=== PATIENT | male | born 1970 | race Caucasian/White ===

== ENCOUNTER 2019-11-23 16:48 | Outpatient (CLI) | payer BC, SELFPAY ==
[2019-11-23 17:51] LABS: Uric Acid 10.5 mg/dL (3.5-8.5)
[2019-11-23 17:53] LABS: Rheumatoid Factor < 8.6 IU/ML (<12)
== END 2019-11-23 16:49 | disposition home or self-care (01) ==
PROVIDERS: PCP Family Medicine; Visit Provider Family Medicine
DX: M25.50 Pain in unspecified joint (principal)
CPT/HCPCS: 36415; 84550; 86430

== ENCOUNTER → 2020-01-10 16:53 | Outpatient (CLI) | payer BC, SELFPAY ==
--- NOTE | ~2020-01-10 | XR_ITS ---
EXAMINATION: XR finger 3rd LT min 2V INDICATION: Left third finger pain TECHNIQUE: Four views of the left third finger are obtained. COMPARISON: None available FINDINGS: There is soft tissue swelling of the finger centered at the proximal interphalangeal joint. There are tiny heterotopic ossification seen at the dorsal and medial aspect of the interphalangeal joint space. Bone alignment is normal. IMPRESSION: 1. Heterotopic ossification and soft tissue swelling at the proximal interphalangeal joint which coul d reflect avulsion injury. Reviewed, dictated and finalized at location A. IMPRESSION: 1. Heterotopic ossification and soft tissue swelling at the proximal interphala ngeal joint which could reflect avulsion injury.
== END ==
PROVIDERS: PCP Family Medicine; Visit Provider Family Medicine
DX: M79.645 Pain in left finger(s) (principal); M79.89 Other specified soft tissue disorders
CPT/HCPCS: 73140

== ENCOUNTER 2022-07-25 12:59 | Outpatient (CLI) | payer OTHER, SELFPAY | END 2022-07-25 13:00 | disposition home or self-care (01) | PROVIDERS: PCP Family Medicine; Visit Provider Family Medicine | DX: H91.90 Unspecified hearing loss, unspecified ear (principal) | CPT/HCPCS: 92557; 92567 ==

== ENCOUNTER → 2024-04-04 08:58 | Outpatient (REF) | payer OTHER, SELFPAY | LOC: ANHLAB 08:58 | PROVIDERS: PCP Family Medicine; Visit Provider Plastic Surgery | DX: R22.0 Localized swelling, mass and lump, head (principal) | CPT/HCPCS: 88305 ==

== ENCOUNTER 2024-11-01 14:31 | Outpatient (CLI) | payer OTHER, SELFPAY ==
--- NOTE | ~2024-11-01 | US_ITS ---
Left posterior shoulder ULTRASOUND (Doppler ultrasound interrogation techniques used as needed for th is exam.) Ordering provider: Kenn Turcios MD History: . R22.2 - Localized swelling, mass and lump, trunk . Comparison: None. FINDINGS/impression: Large isoechoic area which measures 8.5 x 3.1 x 8.7 cm. This may represent a lipoma. A mass lesion is less likely. Further evaluation and follow-up advised. Reviewed, dictated and finalized at location A.
== END 2024-11-01 14:32 | disposition home or self-care (01) ==
PROVIDERS: PCP Family Medicine; Visit Provider Surgery
DX: R22.2 Localized swelling, mass and lump, trunk (principal)
CPT/HCPCS: 76604

== ENCOUNTER 2024-11-11 09:53 | Outpatient (CLI) | payer OTHER, SELFPAY ==
--- NOTE | ~2024-11-11 | CT_ITS ---
Procedure: CT shoulder LT wo con Ordering provider: Kenn Turcios MD History: . R22.2 - Localized swelling, mass and lump, trunk . Comparison: None. Technique: Thin slice axial CT of the No IV contrast was given. Sagittal and coronal reformatted imag es were also obtained and reviewed. Radiation reduction technique utilized.The dose-length product wa s 715.1 mGy-cm. Findings: BONES: No definite evidence of fracture or dislocation. Small bony fragment seen near to the acromioc lavicular joint most likely due to old trauma. Evaluation for tenderness advised. JOINT SPACES: Mild osteoarthritic changes of the acromioclavicular joint. Moderate to severe osteoart hritic changes of the glenohumeral joint with osteophytes seen inferiorly in the humeral head and in the glenoid cavity.. SOFT TISSUES: No definite abnormality seen. IMPRESSION: Small bony fragment seen near to the acromioclavicular joint which may be due to acute or old fractur e. Clinical correlation advised. Mild osteoarthritic changes of the acromioclavicular joint. Moderate to severe osteoarthritic changes of the glenohumeral joint. No definite soft tissue mass is seen. Reviewed, dictated and finalized at location A. IMPRESSION: Small bony fragment seen near to the acromioclavicular joint which may be due t o acute or old fracture. Clinical correlation advised. Mild osteoarthritic changes of the acromioclavicular joint. Moderate to severe osteoarthritic changes of the glenohumeral joint. No definite soft tissue mass is seen.
== END 2024-11-11 09:54 | disposition home or self-care (01) ==
LOC: MICIMG 09:53
PROVIDERS: PCP Family Medicine; Visit Provider Surgery
DX: R22.2 Localized swelling, mass and lump, trunk (principal); M19.012 Primary osteoarthritis, left shoulder
CPT/HCPCS: 73200

== ENCOUNTER 2024-12-10 07:29 | Outpatient (CLI) | payer OTHER, SELFPAY ==
[2024-12-10 08:44] LABS: Basophils Absolute Auto 0.1 K/mm3 (0.0-0.1); Basophils Percent Auto 0.9 % (0.2-1.2); Eosinophils Absolute Auto 0.3 K/mm3 (0-0.3); Hematocrit 45.1 % (42.0-52.0); Hemoglobin 15.5 g/dL (14.0-18.0); Immature Granulocyte Absolute 0.02 K/mm3 (0.00-0.031); Immature Granulocyte Percent A 0.3 % (0-0.5); Lymphocytes Absolute Auto 1.98 K/mm3 (0.9-3.2); Lymphocytes Percent Auto 25.7 % (18.3-44.2); Mean Corpuscular HGB Conc 34.4 g/dl (32-36); Mean Corpuscular Hemoglobin 31.2 pg (26-34); Mean Corpuscular Volume 90.7 fl (80-100); Mean Platelet Volume 11.7 fl (7.4-10.4); Monocytes Absolute Auto 0.7 K/mm3 (0.1-0.6); Monocytes Percent Auto 8.6 % (2.6-8.5); Neutrophils Absolute Auto 4.7 K/mm3 (1.3-6.7); Neutrophils Percent Auto 60.5 % (45.5-73.1); Platelet Count Result 193 k/mm3 (150-375); Red Blood Count 4.97 M/mm3 (4.6-6.20); Red Cell Distribution Width 12.6 % (11.5-14.5); White Blood Count 7.7 K/mm3 (4.5-10.0)
[2024-12-10 08:58] LABS: Anion Gap 11 mmol/L (4-12); Blood Urea Nitrogen 15 mg/dL (9-20); Calcium 9.5 mg/dL (8.4-10.2); Carbon Dioxide 26 mmol/L (22-30); Chloride 104 mmol/L (98-107); Estimated Glomerular Filt Rate > 60; Glucose 93 mg/dL (65-110); Potassium 3.7 mmol/L (3.4-5.0); Sodium 141 mmol/L (137-145)
== END 2024-12-10 07:30 | disposition home or self-care (01) ==
LOC: ANHLAB 07:31
PROVIDERS: Anesthesiology; PCP Family Medicine; Visit Provider Surgery
DX: Z51.81 Encounter for therapeutic drug level monitoring (principal); R22.2 Localized swelling, mass and lump, trunk; L98.9 Disorder of the skin and subcutaneous tissue, unspecified
CPT/HCPCS: 36415; 80048; 85025

== ENCOUNTER 2024-12-14 00:42 | Day surgery (SDC) | payer OTHER, SELFPAY ==
[2024-12-09 13:23] VITALS: BMI 36.6
--- NOTE | 2024-12-09 13:46 | PC.NURSE ---
Report to the Outpatient Waiting Room, entrance under the green pavilion located off [facility], at time ___10:00AM___ on date ____12/14/24___. Planned Procedure Time: __12:00PM .? Time changes happen often and if your time is changed the preop area will call you the afternoon before. - You and your visitor will be asked to self-screen and do not enter if you have any COVID symptoms. Please call surgeon if you need to reschedule. - A mask is optional within the hospital at this time. Patients may have clear liquids (water, carbonated beverages, clear teas, apple juice) until 3 hours prior to surgery (9:00AM) with a maximum of 20 ounces. - No food from midnight until time of surgery and no smoking, or chewing tobacco (or any form of nicotine). No chewing gum, candy or mints. Take only the following medications with a SIP of water on the morning of surgery: __NONE DO NOT STOP ANY OF YOUR OTHER PRESCRIPTION MEDICATIONS PRIOR TO SURGERY EXCEPT THE FOLLOWING Hold all vitamins and supplements for 3 days per anesthesiologist. Medications to discontinue per physician NONE Date to take last dose Please no make-up, nail luxembourgish, hairspray, perfume, deodorant, or body powder the day of surgery.? No jewelry (including any body piercings) or valuables the day of surgery, leave them at home.? Please take a shower or bath the night before, or the morning of, surgery with an antibacterial soap.? Wear comfortable, loose fitting clothing.? - Jewelry must be removed prior to entering the operating room.? Rings and piercings that are not removed may be cut off. - The hospital will not accept responsibility for valuables.? - Please leave all valuables, including medications, at home the day of surgery. If you are going home after surgery, a licensed hack driver must drive you home.? - NO public transportation without another adult if you receive anesthesia. - We recommend that an adult stay with you for 24 hours following discharge. - We also recommend that you do not drive, make important decision, drink alcoholic beverages, or take any drugs that were not prescribed by your health care provider for at least 24 hours after your discharge time. Follow any additional instructions given to you from your surgeon. Telephone instructions given to ___PATIENT and asked if any additional questions and then verbalized understanding. Patient advised to call surgeon office or pre surgery nurse liaison [phone] if any additional questions.
--- NOTE | 2024-12-13 11:37 | P.SS_ITS ---
Same Day Admit/Disch: HPI History of Present Illness Chief complaint: Subq mass lt upper back, Post neck skin lesion Narrative: Balwinder Edmondson is a 54 year old male who has had a mass on his left upper back, overlying his scapula, for several years. It seems to be getting larger. By CT scan, this is a lipoma and measures 11 x 7 cm in size. He also has a 0.5 cm fleshy mole on the back of his neck which is bothersome. He is taken to surgery at this time for removal of the subcutaneous mass and the skin lesion on the back of his neck. [facility] Past Medical History Medical History HTN (hypertension) HLD (hyperlipidemia) Obesity Seasonal allergies Sleep apnea Epistaxis Vision abnormalities Hearing loss Finger pain, left Left hand pain Gout Surgical History Surgical History Hx of appendectomy 1983 S/P foot surgery, left 05/16/24, Dr. Larios exostectomy left foot, arthroplasty PIPJ 5th digit left foot, capsulotomy left foot Family History Family History Unknown Arthritis Grandparent Cancer Diabetes mellitus Hypertension Heart disease Father Diabetes mellitus Hypertension Heart disease Mother Hypertension Heart disease Thyroid disorder Sibling Hypertension Other Asthma Social History Social History Smoking status: Never smoker Second hand tobacco smoke exposure: No Alcohol intake: never Substance use: never Substance use type: does not use Current Housing: Decline to Answer Concerned About Future Housing: Decline to Answer Difficulty Paying Gas/Electric Bills: Decline to Answer Difficulty Paying for Meds: Decline to Answer Currently Unemployed: Decline to Answer Education: Decline to Answer Difficulty w/ Childcare or Family Care: Decline to Answer Living arrangements: with family Additional living arrangements comments: Occupation/Education: occupation Gender identity (if verbalized by the patient): Male Sexual Orientation (if Verbalized by the Patient): Straight or Heterosexual Spiritual care concerns: No Same Day Admit/Disch: Med Pre-admit Medications Home Medications ?Medication ?Instructions ?Recorded ?Confirmed ?Type aspirin 81 mg tablet,delayed 81 mg PO DAILY #30 tabs 06/10/22 12/09/24 Rx release (Adult Aspirin Regimen) hydrochlorothiazide 25 mg tablet See Rx Instructions .Route 02/18/24 12/09/24 Rx .COMPLEX #90 tabs lisinopril 40 mg tablet See Rx Instructions .Route 11/15/24 12/09/24 Rx .COMPLEX #90 tabs ibuprofen 600 mg tablet 600 mg PO Q6H PRN pain #14 tabs 12/14/24 Rx oxycodone-acetaminophen 5 mg-325 0.5 - 1 tablet PO Q4H PRN pain #10 12/14/24 Rx mg tablet (Percocet) tabs Review of Systems Review of Systems All systems reviewed & are unremarkable except as noted in HPI and below (HPI) Exam Const: General: comfortable, no acute distress, alert and awake HENMT: Head: normocephalic and atraumatic Mouth: Yes Normal oral and palatal mucosa present Eyes: Conjunctivae: conjunctivae normal Pupils: Equal, round and reactive pupils present EOM: EOMs intact bilaterally Neck: Neck: no lymphadenopathy and nontender Other: Posterior neck shows 0.5 x 0.5 cm skin mole, fleshy with a a reddish hue Resp: Effort & Inspection: normal respiratory effort Auscultation: clear to auscultation bilaterally Cardio: Rate: regular rate Rhythm: regular rhythm Heart sounds: no gallops, no murmurs and no rubs GI: Inspection: non-distended GI Palp: Yes Soft to palpation, No Tenderness to palpation present (GI), No Hepatomegaly present and No Splenomegaly present Back/Spine/Pelvis: Back: mass (12 cm x 11 cm rubbery smooth mass left upper back) Skin: Lesions: no lesions Rashes: no rashes Neuro: General: no focal motor deficits and CN's II-XI intact bilaterally Cranial nerves: Yes Equal, round and reactive pupils present, Yes Bilaterally intact EOM present, Yes facial symmetry and Yes Midline tongue present Speech: normal speech Motor exam (neuro): 5/5 motor strength present throughout and Motor abnormalities not present Extrem: General: no clubbing, cyanosis or edema and edema Psych: Affect: normal affect Thought process: Normal thought process present Insight: Good insight present (Psych) DS: Summary Time Spent with Patient Time attestation: Total time spent providing and/or coordinating discharge services: DS: Admitting Diagnosis Discharge Date 12/14/2024 Admitting Diagnosis * Subcutaneous mass left upper back---getting larger and bothersome, uncomfortab le for the patient when trying to lie flat on his back. CT scan shows this to be a large lipoma-plan to proceed with excision of this large lipoma under anesthesia as an outpatient. The procedure, risks, benefits, alternatives have been discussed. The possibility of a postoperative drain was discussed. Usual length of the surgery as well as the length of recovery were discussed. All questions were answered. He understands and agrees to go ahead. * Skin lesion posterior neck---appears to be benign, fleshy mole but is irritating. Will remove this at the same procedure. This procedure will was discussed as well. * Essential hypertension * Obesity DS: Discharge Diagnosis Discharge Diagnosis (1) Skin lesion of neck: Code(s): L98.9 - Disorder of the skin and subcutaneous tissue, unspecified Status: Chronic (2) Subcutaneous mass of back: Code(s): R22.2 - Localized swelling, mass and lump, trunk Status: Chronic Discharge Plan Discharge Patient Disposition: Home Discharge Instructions: * May bathe or shower tomorrow. * Resume usual diet. * No lifting over 20 lb with left arm for a week. * No vigorous activity or rapid for smoke movement left arm for a week. * May drive a car on Thursday. * Wash over incisions with soap and water when bathing or showering. * Take prescription narcotic pain medicine only when needed, try to use Tylenol or ibuprofen as much as possible. * If no bowel movement in 3 days, try milk of magnesia. * Okay to go up and down steps. * Call Dr. Turcios or go to the emergency room for persistent wound drainage or bleeding, severe swelling or bruising of either wound, severe pain, temperature over 100.5, or other significant change in condition. Patient Language: Togolese Stand Alone Forms: General Discharge Instructions, Work/School Release IP Follow-up/Referrals: Kenn Turcios MD [Physician] - 2 Weeks Discharge Medications: New oxycodone-acetaminophen [Percocet] 5-325 mg tablet 0.5 - 1 tablet PO Q4H PRN (Reason: pain) Qty: 10 0RF ibuprofen 600 mg tablet 600 mg PO Q6H PRN (Reason: pain) Qty: 14 0RF Continued aspirin [Adult Aspirin Regimen] 81 mg tablet,delayed release (DR/EC) 81 mg PO DAILY Qty: 30 0RF hydrochlorothiazide 25 mg tablet See Rx Instructions .ROUTE .COMPLEX Qty: 90 2RF Dose Instruction: Take 1 tablet by mouth once daily Patient Comments: QAM Rx Instructions: Take 1 tablet by mouth once daily lisinopril 40 mg tablet See Rx Instructions .ROUTE .COMPLEX Qty: 90 3RF Dose Instruction: TAKE 1 TABLET DAILY Patient Comments: QAM Rx Instructions: TAKE 1 TABLET DAILY
[2024-12-14] VITALS (10 sets, daily range): BP systolic 133–151; BP diastolic 73–96; PULSE 55–68; RESP 12–20; TEMP 36.3–36.7; O2SAT 94–99
--- NOTE | 2024-12-14 11:45 | WPDHPUPDATE1 ---
History and Physical Update Update Date/Time: 12/14/24 11:45 History and Physical has been reviewed, including an updated exam of the patient. There are NO changes in the patient's condition. Risks, benefits, and alternatives have been discussed and questions answered. Patient agrees to proceed with procedure.
--- NOTE | 2024-12-14 12:00 | WPDANESEPPF ---
Anes - Initial Pre Proc Eval Procedure: Operation Date: 12/14/24 12:00 Proposed Procedures p Excision Subcutaneous Mass Left Upper Back, Excision Posterior Neck Skin Lesion - Kenn Turcios MD Date/Time: 12/14/24 12:00 Surgeon: Kenn Turcios MD Pre Op Diagnosis: Subq mass lt upper back, Post neck skin lesion Patient Data Age: 54 Gender: M Height: 1.68 m Weight: 104.6 kg Last Vital Signs Temp 98.1 F 12/14/24 11:34 Pulse 66 12/14/24 11:34 Resp 16 12/14/24 11:34 BP 145/82 H 12/14/24 11:34 Pulse Ox 97 12/14/24 11:34 O2 Del Method Room Air 12/14/24 11:34 Allergies Allergy/AdvReac Type Severity Reaction Status Date / Time No Known Allergies Allergy Verified 12/14/24 11:32 Home Medications ?Medication ?Instructions ?Recorded ?Confirmed ?Type aspirin 81 mg tablet,delayed 81 mg PO DAILY #30 tabs 06/10/22 12/09/24 Rx release (Adult Aspirin Regimen) hydrochlorothiazide 25 mg tablet See Rx Instructions .Route 02/18/24 12/09/24 Rx .COMPLEX #90 tabs lisinopril 40 mg tablet See Rx Instructions .Route 11/15/24 12/09/24 Rx .COMPLEX #90 tabs Patient hx anesthesia problems: none Family hx anesthesia problems: none Results Review: All pre-operative results and documents have been reviewed as part of the pre-operative evaluation. [facility] Past Medical History Medical History HTN (hypertension) HLD (hyperlipidemia) Obesity Seasonal allergies Sleep apnea Epistaxis Vision abnormalities Hearing loss Finger pain, left Left hand pain Gout Surgical History Surgical History Hx of appendectomy 1983 S/P foot surgery, left 05/16/24, Dr. Larios exostectomy left foot, arthroplasty PIPJ 5th digit left foot, capsulotomy left foot Family History Family History Unknown Arthritis Grandparent Cancer Diabetes mellitus Hypertension Heart disease Father Diabetes mellitus Hypertension Heart disease Mother Hypertension Heart disease Thyroid disorder Sibling Hypertension Other Asthma Social History Social History Smoking status: Never smoker Second hand tobacco smoke exposure: No Alcohol intake: never Substance use: never Substance use type: does not use Current Housing: Decline to Answer Concerned About Future Housing: Decline to Answer Difficulty Paying Gas/Electric Bills: Decline to Answer Difficulty Paying for Meds: Decline to Answer Currently Unemployed: Decline to Answer Education: Decline to Answer Difficulty w/ Childcare or Family Care: Decline to Answer Living arrangements: with family Additional living arrangements comments: Occupation/Education: occupation Gender identity (if verbalized by the patient): Male Sexual Orientation (if Verbalized by the Patient): Straight or Heterosexual Spiritual care concerns: No Anes - Eval Final PreProcedure Day of Procedure 12/14/24 12:00 Patient weight: obese Lungs: normal air movement Airway: Mallampati scale class II Neurological: alert and oriented Last oral intake: >/= 8 hours ASA classification: III Emergent: no Anesthetic plan: proceed Anesthesia type and monitoring: general ETT and standard monitoring Results Review: All pre-operative results and documents have been reviewed as part of the pre-operative evaluation. HTN, hyperlipidemia, STEPHANIE, BMI 37. Informed Consent: The patient's anesthetic plan and its attendant risks and benefits were discussed with the patient/family/POA. Questions were solicited and answers provided to the satisfaction of the patient/family/POA.
[2024-12-14] MEDS: ceFAZolin 2 GM/D5W 50 ML 2 GM/50 ML BAG IVPB (12:20)
--- NOTE | 2024-12-14 12:34 | S_PTH ---
PATIENT: Balwinder Edmondson LOC: [facility] U#:[id number] AGE/SX: 54/M ROOM: RE12/14/[address]: Kenn Turcios MD : 1970 BED: DIS: 12/14/2024 SPEC #: [id number] RECD: 12/14/24 14:06 STATUS: RAAD REQ #: [id number] CRUZ: 12/14/24 12:[address]: Kenn Turcios DEPT: [facility] Surgical RECD BY: Lisseth Michelle ENTERED: 12/14/24 14:07 SP TYPE: Surgical OTHR DR: Nam Lynch MD Tissues: A - Mass B - Mass Procedures: Hematoxylin and Eosin Stain Gross and Microscopic Level 3
--- NOTE | 2024-12-14 13:00 | SUR.OPER ---
subcutaneous madd left back 10 x 7.5 x 3 cm thick
[2024-12-14] MEDS: BUPIVACAINE/EPINEPHRINE 0.5% 50 ML VIAL 30 ML INFILTRATE (13:02)
[2024-12-14] MEDS: LACTATED RINGERS 1,000 ML 30 ML IV CONT (13:44)
--- NOTE | 2024-12-14 13:57 | W.PM.PROC2 ---
Procedure Note - Detailed Date of Procedure 12/14/24 Pre-op Diagnosis Subq mass lt upper back, Post neck skin lesion Post-op Diagnosis Same Procedure Performed Patient was taken to surgery and induced into general anesthesia. He was then placed in a prone position. His posterior neck and upper back were prepped and draped. The areas of the skin lesion and the subcutaneous mass had been marked in the preoperative holding area. We started with the subcutaneous mass on the posterior neck. An ellipse was drawn around the subcutaneous mass leaving a 2-3 mm margin from each edge. Local was infiltrated over this anticipated incision. Incision was made and an ellipse of skin containing the lesion was excised. Cautery was used for hemostasis. I undermined some of the skin from the subcutaneous to minimize tension on the repair. Lesion itself was 0.5 cm in diameter and margins were 0.2 cm making this a 0.9 cm excision. The wound was closed in layers with a subcuticular interrupted suture of 4-0 Vicryl. The skin was closed with running 4-0 Monocryl skin suture. We then covered this wound and turned our attention to the subcutaneous mass of the back overlying the left scapula. This mass had been marked as well with the preoperative holding area. An ellipse was drawn in oblique fashion over the mass. This was done to excise extra skin and subcutaneous so that the resultant closure would lie flat and there would be minimal space from mass removal peer. Local was infiltrated into the ellipse which was about 16 cm in length. Additional local was infiltrated in a field block around the subcutaneous mass. Incision was made and the ellipse of skin was excised completely with some of the subcutaneous tissue. Cautery was used for hemostasis. The skin was discarded. We then continued our dissection through Makeda's fascia and came down to the lipoma. As expected, it was quite large. Careful dissection with the cautery was used and the lipoma was able to be excised in 1 piece. There was minimal bleeding associated as it was well encapsulated. The mass was excised with no margin. Once the mass was excised, measured it and it was 10 cm in its greatest dimension. It was sent to pathology in formalin. The wound was then closed in layers. Makeda's fascia was closed with interrupted 3-0 Vicryl suture. Some superficial subcutaneous interrupted 4-0 Vicryl stitches were then placed. Finally the skin was closed with a running 4-0 Monocryl skin suture. Both wounds were dressed with Exofin surgical adhesive. Patient was awakened and taken to recovery in good condition. Sponge and needle counts were correct x2. Surgeon Kenn Turcios MD [employer]intering Press Operator Patricia Michaud PA-C Anesthesia General and Local Indications Patient has an enlarging mass in the left upper back overlying and scapula. By CT scan this is a large lipoma. He also has a skin mole on the back of his neck which is 0.5 cm in size raised but not pigmented. The skin lesion is irritating frequently. Findings Large lipoma of the back, skin lesion of the neck
--- NOTE | 2024-12-14 14:12 | PM.OP ---
Procedure Note - Brief Procedure Note - Brief Date of procedure: 12/14/24 Subq mass lt upper back, Post neck skin lesion Procedure performed: Excision subcutaneous mass of the back, excision skin lesion in the neck Surgeon: Kenn Turcios MD Anesthesia: GETA Drains: No Packing: No Pathology: Yes (Large subcutaneous mass of the back, skin lesion in the neck) Complications: None Condition: Stable Disposition: PACU
--- NOTE | 2024-12-14 14:15 | W.PM.PROC2 ---
Procedure Note - Detailed Date of Procedure 12/14/24 Pre-op Diagnosis Subq mass lt upper back, Post neck skin lesion Post-op Diagnosis Same Procedure Performed Excision 10 cm subcutaneous mass of the back with no margin, 16 cm layered closure. Excision 5 mm skin lesion of the posterior neck with 2 mm margin, 0.9 cm excision with simple closure Surgeon Kenn Turcios MD [employer] Supervisor Patricia Williamson Anesthesia General and Local Indications Patient has an enlarging mass of his left upper back which is making it difficult for him to lay flat on his back. By exam and CT scan this is a large lipoma. It overlies his left scapula. He also has a fleshy mole on the posterior neck which is irritating and he tends to scratch it. This is 0.5 cm. He is taken to surgery now to excise both the subcutaneous mass and the skin lesion of the neck Findings Subcutaneous mass was consistent with a large lipoma, 10 cm in greatest dimension. Description of Procedure Patient was taken to surgery and induced into general anesthesia. He was then placed in a prone position. The posterior neck and back were prepped and draped. The skin lesion and the area of the subcutaneous mass been marked on the skin preoperatively. We turned our attention 1st to the skin lesion. An ellipse had been drawn around the skin lesion with 2-3 mm margins at a minimum. This was a transversely oriented ellipse. Local was infiltrated into the ellipse and the deeper subcutaneous tissues. Incision was made and the ellipse of skin including the skin lesion was excised. 2 mm margins were present. Cautery was used for hemostasis. I undermined the subcutaneous just deep to the skin. The wound was then closed 1st with interrupted subcuticular 4-0 Vicryl skin suture. The skin was then closed with running 4-0 Monocryl skin suture. A sterile sponge was placed over this and we turned our attention to the subcutaneous mass. An ellipse was drawn over the mass and an oblique fashion. Local was infiltrated into the skin and subcutaneous of the ellipse. More local was infiltrated around the area of the mass itself. We then made an incision over the course of the ellipse. This skin and some of the subcutaneous was excised. Cautery was used for hemostasis. Traction was then placed on the skin and subcutaneous on each side. Dissection was carried down through subcutaneous tissue and through Makeda's fascia. The lipoma was found. We carefully dissected the lipoma free of the surrounding subcutaneous tissue. It was well encapsulated and was able to be removed in 1 piece. Cautery was used for the dissection and to maintain hemostasis. Once the subcutaneous mass was excised. It was measured and was 10 cm in greatest dimension. It was sent to pathology in formalin. The skin lesion had been sent to pathology in formalin as well. We then closed the wound in layers. Makeda's fascia was closed with interrupted 3-0 Vicryl suture. The subcutaneous was closed with interrupted subcuticular 4-0 Vicryl skin suture. Finally the skin was closed with running 4-0 Monocryl skin suture. Both wounds were dressed with Exofin surgical adhesive. The patient was then returned to a supine position, awakened and extubated. He transferred to recovery in good condition. Sponge and needle counts were correct x2. Estimated Blood Loss -5 Pathology Yes (Skin lesion posterior neck, subcutaneous mass left upper back) Complications None Condition Stable Disposition PACU [facility] Billing Surgery - Charge Forward: Surgery Billing (Excision 10 cm subcutaneous mass of the back with no margin, 16 cm layered closure. Excision 5 mm skin lesion of the posterior neck with 2 mm margin, 0.9 cm excision with simple closure)
[2024-12-14] MEDS: IBUPROFEN 600 MG TABLET PO (15:15)
== END 2024-12-14 15:55 | disposition home or self-care (01) ==
PROVIDERS: PCP Family Medicine; Visit Provider Surgery
PROC: (CPT 21931; principal; 2024-12-14 12:00)
DX: D17.1 Benign lipomatous neoplasm of skin and subcutaneous tissue of trunk (principal); D36.11 Benign neoplasm of peripheral nerves and autonomic nervous system of face, head, and neck; G89.18 Other acute postprocedural pain; E78.5 Hyperlipidemia, unspecified; I10 Essential (primary) hypertension; G47.33 Obstructive sleep apnea (adult) (pediatric); E66.9 Obesity, unspecified; Z68.37 Body mass index [BMI] 37.0-37.9, adult; Z79.82 Long term (current) use of aspirin; Z79.1 Long term (current) use of non-steroidal anti-inflammatories (NSAID); Z79.891 Long term (current) use of opiate analgesic; Z98.890 Other specified postprocedural states; Z80.9 Family history of malignant neoplasm, unspecified; Z82.49 Family history of ischemic heart disease and other diseases of the circulatory system
CPT/HCPCS: 21931; 64788; 88304; A9270; J0690; J1100; J2003; J2250; J2405; J2704; J3010; J7120